=== PATIENT | male | born 1950 | race Caucasian/White ===

== ENCOUNTER 2018-03-20 10:47 | Inpatient (IN) | payer OTHER ==
[2018-03-20 11:33] LABS: ADD MAN DIFF? NO
[2018-03-20 11:34] LABS: BASOPHILS % 0.2 % (0.0-2.0); HEMATOCRIT 45.6 % (42.0-52.0); HEMOGLOBIN 15.5 g/dl (14.0-18.0); LYMPHOCYTES # 1.2 10^3/ul (0.8-2.9); LYMPHOCYTES % 14.4 % (15.0-51.0); MEAN CORPUSCULAR HEMOGLOBIN 33.6 pg (29.0-33.0); MEAN CORPUSCULAR VOLUME 98.9 fl (82.0-101.0); MEAN PLATELET VOLUME 8.6 fl (7.4-10.4); MONOCYTE # 0.7 10^3/ul (0.3-0.9); MONOCYTES % 8.7 % (0.0-11.0); NEUTROPHIL # 6.4 10^3/ul (1.6-7.5); NEUTROPHILS % 76.3 % (39.0-77.0); NUCLEATED RED BLOOD CELLS # 0.1 10^3/ul (0.0-0.0); PLATELET COUNT 220 10^3/UL (140-415); RED BLOOD COUNT 4.61 10^6/ul (4.70-6.10); RED CELL DISTRIBUTION WIDTH 18.2 % (11.5-14.5)
[2018-03-20 11:34] LABS: WHITE BLOOD COUNT 8.4 10^3/ul (4.8-10.8)
[2018-03-20] MEDS: SODIUM CHLORIDE 0.9% 1L BAG IV* (11:36)
[2018-03-20] MEDS: FUROSEMIDE 20 MG INJ IV (11:43)
[2018-03-20] MEDS: CEFTRIAXONE 1 GM/50 ML (PMX) 50 ML IVPB (11:46)
[2018-03-20] MEDS: ALBUTEROL 0.5% (NEB) 2.5 MG/0.5 ML AMP INH (11:54)
[2018-03-20] MEDS: AZITHROMYCIN 500MG/NS (PMX) 250 ML IV ×2 (12:04→12:43)
[2018-03-20 13:14] LABS: Allen Test ACCEPTAB; Arterial Base Excess 5.7 mmol/L (-3.0-3); Arterial Blood Gas Oxygen Sat 99.4 mmHG (95.0-98.0); Arterial Fraction of Oxyhgb 96.9 % (93.0-99.0); Arterial HCO3 40.1 mmol/L (22.0-26.0); Arterial MetHb 0.5 % (0.0-1.5); Arterial pCO2 123.7 mmhg (35-45); Blood Gas IEPAP 20/5; Blood Gas PS 15; MODE MASK - BIPAP; Site Right Radial
[2018-03-20] MEDS ORDERED: SOD CHLORIDE 0.9% 1,000 ML IV (13:41)
[2018-03-20 13:43] LABS: ALANINE AMINOTRANSFERASE 14 IU/L (13-69); ALBUMIN 3.7 g/dl (3.3-4.9); ALBUMIN/GLOBULIN RATIO 0.92; ALKALINE PHOSPHATASE 70 IU/L (42-121); ANION GAP 16 (5-13); ASPARTATE AMINO TRANSFERASE 24 IU/L (15-46); BILIRUBIN,INDIRECT 0.3 mg/dl (0-1.1); BILIRUBIN,TOTAL 0.3 mg/dl (0.2-1.3); BLOOD UREA NITROGEN 42 mg/dl (7-20); CARBON DIOXIDE 35 mmol/L (21-31); CHLORIDE 90 mmol/L (97-110); Estimated GFR > 60 mL/min (>60); GLUCOSE 158 mg/dl (70-220); POTASSIUM 4.4 mmol/L (3.5-5.1); SODIUM 141 mmol/L (135-144); TOTAL PROTEIN 7.7 g/dl (6.1-8.1)
[2018-03-20] MEDS ORDERED: PROPOFOL 100 ML (13:48)
[2018-03-20] MEDS ORDERED: LORAZEPAM 2 MG INJ (13:48)
[2018-03-20 13:55] LABS: B-TYPE NATRIURETIC PEPTIDE 2480 PG/ML (0-125); TROPONIN-I 0.014 ng/ml (0.000-0.120)
[2018-03-20] MEDS ORDERED: ONDANSETRON 4 MG INJ IV ×2 (14:00→15:00)
[2018-03-20] MEDS ORDERED: ACETAMINOPHEN 325 MG TAB PO (14:00)
[2018-03-20] MEDS: MIDAZOLAM (DRIP) 50 mg/50 mL 50 ML IV ×2 (14:06→19:40)
[2018-03-20] MEDS: FENTAnyl (DRIP) 1000 mcg/100mL 100 ML IV (14:12)
[2018-03-20] MEDS: LORAZEPAM 2 MG INJ IV ×2 (14:31)
[2018-03-20] MEDS: SOD CHLORIDE 0.9% 1,000 ML IV (14:46)
[2018-03-20] MEDS ORDERED: IPRATROPIUM (HFA) 12.9 GM INHALER INH (15:00)
[2018-03-20] MEDS ORDERED: LORAZEPAM 2 MG INJ IV (15:00)
[2018-03-20] MEDS ORDERED: ACETAMINOPHEN 650MG/20.3ML CUP PO (15:00)
[2018-03-20 15:10] LABS: ETHANOL < 10.0 mg/dl (0-0)
[2018-03-20] MEDS ORDERED: VANCOMYCIN IV PER PHARMACY XX (15:30)
[2018-03-20 15:31] LABS: HEMOGLOBIN A1C 5.2 % (0-5.9)
[2018-03-20 15:44] LABS: AADO2 Arterial 243.8 mmHg (7.0-24.0); Allen Test ACCEPTAB; Arterial Base Excess 10.3 mmol/L (-3.0-3); Arterial Blood Gas Oxygen Sat 92.7 mmHG (95.0-98.0); Arterial COHb 1.5 % (0.0-3.0); Arterial Fraction of Oxyhgb 91.1 % (93.0-99.0); Arterial HCO3 34.8 mmol/L (22.0-26.0); Arterial MetHb 0.2 % (0.0-1.5); Arterial pCO2 45.3 mmhg (35-45); MODE VENT - AC; Site Right Radial
[2018-03-20 16:34] LABS: ADD UMIC YES; UR ASCORBIC ACID NEGATIVE (NEGATIVE); UR BACTERIA FEW /HPF (NONE SEEN); UR BILIRUBIN (Dip) NEGATIVE (NEGATIVE); UR BLOOD (Dip) 1+ mg/dL (NEGATIVE); UR CLARITY SLIGHTLY CLOUDY (CLEAR); UR COLOR YELLOW (YELLOW); UR GLUCOSE (Dip) NEGATIVE (NEGATIVE); UR HYALINE CAST FEW /HPF (NONE SEEN); UR KETONES (Dip) NEGATIVE (NEGATIVE); UR LEUKOCYTE ESTERASE (Dip) 1+ Leu/ul (NEGATIVE); UR NITRITE (Dip) NEGATIVE (NEGATIVE); UR RBC 0 /HPF (0-5); UR SPECIFIC GRAVITY (Dip) 1.009 (1.003-1.030); UR TOTAL PROTEIN (Dip) NEGATIVE (NEGATIVE); UR UROBILINOGEN (Dip) NEGATIVE (NEGATIVE); UR WBC 8 /HPF (0-5)
[2018-03-20 16:52] LABS: LACTIC ACID 3.5 mmol/L (0.5-2.0)
[2018-03-20] MEDS: METHYLPREDNISOLONE 125 MG INJ IV ×2 (17:50→23:00)
[2018-03-20] MEDS: DEXTROSE 5%-0.45% NACL 1,000 ML IV (17:50)
[2018-03-20] MEDS ORDERED: FUROSEMIDE 40 MG INJ IV (18:00)
[2018-03-20] MEDS: VANCOMYCIN HCL 1.5 GM in SOD CHLORIDE 0.9% 250 ML IVPB (20:41)
[2018-03-20] MEDS: CEFEPIME 1GM/50 ML (PMX) 50 ML IVPB (20:42)
[2018-03-20 21:00] LABS: MAGNESIUM 2.1 mg/dl (1.7-2.5)
[2018-03-20] MEDS: CHLORDIAZEPOXIDE 25 MG CAP NGT ×2 (21:00→23:00)
[2018-03-20] MEDS: MOXIFLOXACIN 0.5% 3 ML OPH BOTH EYES (21:17)
[2018-03-21] MEDS: IPRATROPIUM (HFA) 12.9 GM INHALER INH ×6 (01:26→21:00)
[2018-03-21] MEDS: PANTOPRAZOLE 40 MG INJ IV (05:06)
[2018-03-21] MEDS: FUROSEMIDE 40 MG INJ IV ×2 (05:06→17:56)
[2018-03-21] MEDS: MIDAZOLAM (DRIP) 50 mg/50 mL 50 ML IV (05:06)
[2018-03-21] MEDS: METHYLPREDNISOLONE 125 MG INJ IV ×4 (05:07→23:46)
[2018-03-21 05:09] LABS: AADO2 Arterial 233.9 mmHg (7.0-24.0); Allen Test ACCEPTAB; Arterial Base Excess 9.6 mmol/L (-3.0-3); Arterial Blood Gas Oxygen Sat 93.4 mmHG (95.0-98.0); Arterial COHb 0.9 % (0.0-3.0); Arterial Fraction of Oxyhgb 92.3 % (93.0-99.0); Arterial HCO3 34.9 mmol/L (22.0-26.0); Arterial MetHb 0.3 % (0.0-1.5); Arterial pCO2 48.9 mmhg (35-45); MODE VENT - AC; Site Right Radial
[2018-03-21 05:18] LABS: ADD MAN DIFF? NO
[2018-03-21 05:29] LABS: ABNORMAL IP MESSAGE 1; HEMATOCRIT 41.9 % (42.0-52.0); HEMOGLOBIN 13.7 g/dl (14.0-18.0); LYMPHOCYTES # 0.2 10^3/ul (0.8-2.9); LYMPHOCYTES % 4.6 % (15.0-51.0); MEAN CORPUSCULAR HEMOGLOBIN 33.8 pg (29.0-33.0); MEAN CORPUSCULAR HGB CONC 32.7 g/dl (32.0-37.0); MEAN CORPUSCULAR VOLUME 103.5 fl (82.0-101.0); MEAN PLATELET VOLUME 9.7 fl (7.4-10.4); MONOCYTE # 0.1 10^3/ul (0.3-0.9); MONOCYTES % 2.4 % (0.0-11.0); NEUTROPHIL # 4.6 10^3/ul (1.6-7.5); NEUTROPHILS % 92.6 % (39.0-77.0); NUCLEATED RED BLOOD CELLS% 0.4 /100WBC (0.0-0.0); PLATELET COUNT 174 10^3/UL (140-415); POSITIVE DIFF @See below; RED BLOOD COUNT 4.05 10^6/ul (4.70-6.10); RED CELL DISTRIBUTION WIDTH 14.7 % (11.5-14.5)
[2018-03-21 05:59] LABS: ALANINE AMINOTRANSFERASE 16 IU/L (13-69); ALBUMIN/GLOBULIN RATIO 0.83; ALKALINE PHOSPHATASE 47 IU/L (42-121); ANION GAP 9 (5-13); ASPARTATE AMINO TRANSFERASE 30 IU/L (15-46); BILIRUBIN,INDIRECT 0.3 mg/dl (0-1.1); BILIRUBIN,TOTAL 0.3 mg/dl (0.2-1.3); BLOOD UREA NITROGEN 33 mg/dl (7-20); CALCIUM 7.4 mg/dl (8.4-10.2); CARBON DIOXIDE 37 mmol/L (21-31); CHLORIDE 93 mmol/L (97-110); CREATININE 0.63 mg/dl (0.61-1.24); Estimated GFR > 60 mL/min (>60); GLUCOSE 189 mg/dl (70-220); POTASSIUM 4.4 mmol/L (3.5-5.1); SODIUM 139 mmol/L (135-144); TOTAL PROTEIN 6.6 g/dl (6.1-8.1)
[2018-03-21] MEDS: NICOTINE (21 MG/24 HR) PATCH TRANSDERM (08:57)
[2018-03-21] MEDS: CEFEPIME 1GM/50 ML (PMX) 50 ML IVPB ×2 (08:58→20:34)
[2018-03-21] MEDS: MOXIFLOXACIN 0.5% 3 ML OPH BOTH EYES ×2 (08:58→20:34)
[2018-03-21] MEDS: ENOXAPARIN 40 MG/0.4 ML SYG SC (09:00)
[2018-03-21] MEDS: CHLORDIAZEPOXIDE 25 MG CAP NGT (09:00)
[2018-03-21] MEDS: DEXTROSE 5%-0.45% NACL 1,000 ML IV (09:58)
[2018-03-21] MEDS: LORAZEPAM 2 MG INJ IV ×3 (12:16→22:27)
[2018-03-21] MEDS: VANCOMYCIN 1 GM 250 ML IVPB ×2 (12:19→22:22)
[2018-03-21] MEDS ORDERED: VANCOMYCIN HCL 1.25 GM in SOD CHLORIDE 0.9% 250 ML IVPB (16:00)
[2018-03-21] MEDS: SUCCINYLCHOLINE CHLORIDE 100 MG/5 ML SYG IV (17:00)
[2018-03-22] MEDS: FENTAnyl (DRIP) 1000 mcg/100mL 100 ML IV (00:31)
[2018-03-22] MEDS: IPRATROPIUM (HFA) 12.9 GM INHALER INH ×6 (01:41→21:00)
[2018-03-22 04:53] LABS: ADD MAN DIFF? NO
[2018-03-22 04:55] LABS: ABNORMAL IP MESSAGE 1; HEMATOCRIT 39.3 % (42.0-52.0); HEMOGLOBIN 12.6 g/dl (14.0-18.0); LYMPHOCYTES # 0.2 10^3/ul (0.8-2.9); LYMPHOCYTES % 3.9 % (15.0-51.0); MEAN CORPUSCULAR HEMOGLOBIN 33.3 pg (29.0-33.0); MEAN CORPUSCULAR HGB CONC 32.1 g/dl (32.0-37.0); MEAN PLATELET VOLUME 9.6 fl (7.4-10.4); MONOCYTE # 0.2 10^3/ul (0.3-0.9); MONOCYTES % 3.5 % (0.0-11.0); NEUTROPHIL # 5.2 10^3/ul (1.6-7.5); NEUTROPHILS % 91.9 % (39.0-77.0); PLATELET COUNT 167 10^3/UL (140-415); POSITIVE DIFF @See below; RED BLOOD COUNT 3.78 10^6/ul (4.70-6.10); RED CELL DISTRIBUTION WIDTH 14.6 % (11.5-14.5)
[2018-03-22 04:55] LABS: WHITE BLOOD COUNT 5.7 10^3/ul (4.8-10.8)
[2018-03-22 05:27] LABS: MAGNESIUM 2.2 mg/dl (1.7-2.5)
[2018-03-22 05:29] LABS: ALANINE AMINOTRANSFERASE 17 IU/L (13-69); ALBUMIN 2.9 g/dl (3.3-4.9); ALBUMIN/GLOBULIN RATIO 0.87; ALKALINE PHOSPHATASE 50 IU/L (42-121); ANION GAP 6 (5-13); ASPARTATE AMINO TRANSFERASE 16 IU/L (15-46); BILIRUBIN,INDIRECT 0.1 mg/dl (0-1.1); BILIRUBIN,TOTAL 0.1 mg/dl (0.2-1.3); BLOOD UREA NITROGEN 37 mg/dl (7-20); CALCIUM 7.5 mg/dl (8.4-10.2); CARBON DIOXIDE 35 mmol/L (21-31); CHLORIDE 98 mmol/L (97-110); CREATININE 0.74 mg/dl (0.61-1.24); Estimated GFR > 60 mL/min (>60); GLUCOSE 165 mg/dl (70-220); POTASSIUM 3.7 mmol/L (3.5-5.1); SODIUM 139 mmol/L (135-144); TOTAL PROTEIN 6.2 g/dl (6.1-8.1)
[2018-03-22] MEDS: DEXTROSE 5%-0.45% NACL 1,000 ML IV (05:33)
[2018-03-22] MEDS: METHYLPREDNISOLONE 125 MG INJ IV (05:34)
[2018-03-22] MEDS: FUROSEMIDE 40 MG INJ IV ×2 (05:34→18:00)
[2018-03-22] MEDS: PANTOPRAZOLE 40 MG INJ IV (05:34)
[2018-03-22] MEDS: CEFEPIME 1GM/50 ML (PMX) 50 ML IVPB ×2 (08:34→20:47)
[2018-03-22] MEDS: NICOTINE (21 MG/24 HR) PATCH TRANSDERM (08:36)
[2018-03-22] MEDS: ENOXAPARIN 40 MG/0.4 ML SYG SC (08:37)
[2018-03-22] MEDS: MOXIFLOXACIN 0.5% 3 ML OPH BOTH EYES ×2 (09:06→21:00)
[2018-03-22 10:59] LABS: VANCOMYCIN,TROUGH 20.1 ug/ml (10.0-20.0)
[2018-03-22] MEDS: FOLIC ACID 1 MG TAB NGT (11:49)
[2018-03-22] MEDS: THIAMINE 100 MG TAB NGT (11:49)
[2018-03-22] MEDS: MULTIVITAMINS 30 ML CUP NGT (11:49)
[2018-03-22] MEDS: METHYLPREDNISOLONE 40 MG INJ IV ×2 (12:11→17:13)
[2018-03-22 13:07] LABS: AADO2 Arterial 117.3 mmHg (7.0-24.0); Allen Test ACCEPTAB; Arterial Blood Gas Oxygen Sat 94.5 mmHG (95.0-98.0); Arterial COHb 0.7 % (0.0-3.0); Arterial Fraction of Oxyhgb 93.6 % (93.0-99.0); Arterial HCO3 39.1 mmol/L (22.0-26.0); Arterial MetHb 0.2 % (0.0-1.5); Arterial pCO2 73.9 mmhg (35-45); Blood Gas PS 10; MODE VENT - CPAP; Site Right Radial
[2018-03-22] MEDS: SOD CHLORIDE 0.9% 500 ML IV ×2 (17:09→18:47)
[2018-03-22 19:51] LABS: CREATINE KINASE 23 IU/L (23-200)
[2018-03-22 20:04] LABS: CK-MB < 0.22 ng/ml (0.0-2.4); TROPONIN-I < 0.012 ng/ml (0.000-0.120)
[2018-03-22 21:25] LABS: AADO2 Arterial 112.5 mmHg (7.0-24.0); Allen Test ACCEPTAB; Arterial Base Excess 6.7 mmol/L (-3.0-3); Arterial Blood Gas Oxygen Sat 99.9 mmHG (95.0-98.0); Arterial COHb 0.6 % (0.0-3.0); Arterial Fraction of Oxyhgb 98.9 % (93.0-99.0); Arterial HCO3 38.5 mmol/L (22.0-26.0); Arterial MetHb 0.4 % (0.0-1.5); Arterial pCO2 96.1 mmhg (35-45); MODE MASK - NRB; Site Right Radial
[2018-03-22] MEDS: VANCOMYCIN HCL 1.25 GM in SOD CHLORIDE 0.9% 250 ML IVPB (22:08)
[2018-03-23] MEDS: METHYLPREDNISOLONE 40 MG INJ IV ×5 (00:08→23:32)
[2018-03-23 04:54] LABS: ADD MAN DIFF? NO
[2018-03-23 04:56] LABS: AADO2 Arterial 103.9 mmHg (7.0-24.0); Allen Test ACCEPTAB; Arterial Base Excess 9.4 mmol/L (-3.0-3); Arterial Blood Gas Oxygen Sat 98.8 mmHG (95.0-98.0); Arterial COHb 0.3 % (0.0-3.0); Arterial Fraction of Oxyhgb 98.2 % (93.0-99.0); Arterial HCO3 38.9 mmol/L (22.0-26.0); Arterial MetHb 0.3 % (0.0-1.5); Arterial pCO2 77.8 mmhg (35-45); Blood Gas IEPAP 20/5; Blood Gas PS 15; MODE MASK - BIPAP; Site Right Radial
[2018-03-23 04:58] LABS: ABNORMAL IP MESSAGE 1; HEMATOCRIT 42.5 % (42.0-52.0); HEMOGLOBIN 13.5 g/dl (14.0-18.0); LYMPHOCYTES # 0.2 10^3/ul (0.8-2.9); LYMPHOCYTES % 5.9 % (15.0-51.0); MEAN CORPUSCULAR HEMOGLOBIN 33.8 pg (29.0-33.0); MEAN CORPUSCULAR HGB CONC 31.8 g/dl (32.0-37.0); MEAN CORPUSCULAR VOLUME 106.5 fl (82.0-101.0); MEAN PLATELET VOLUME 9.5 fl (7.4-10.4); MONOCYTE # 0.1 10^3/ul (0.3-0.9); MONOCYTES % 2.5 % (0.0-11.0); NEUTROPHIL # 3.7 10^3/ul (1.6-7.5); PLATELET COUNT 172 10^3/UL (140-415); POSITIVE DIFF @See below; RED BLOOD COUNT 3.99 10^6/ul (4.70-6.10); RED CELL DISTRIBUTION WIDTH 14.6 % (11.5-14.5)
[2018-03-23 04:58] LABS: WHITE BLOOD COUNT 4.1 10^3/ul (4.8-10.8)
[2018-03-23 05:15] LABS: NEUTROPHILS % 91.1 % (39.0-77.0)
[2018-03-23] MEDS: PANTOPRAZOLE 40 MG INJ IV (05:34)
[2018-03-23 05:36] LABS: ANION GAP 6 (5-13); BLOOD UREA NITROGEN 34 mg/dl (7-20); CALCIUM 7.8 mg/dl (8.4-10.2); CARBON DIOXIDE 37 mmol/L (21-31); CHLORIDE 100 mmol/L (97-110); CREATININE 0.67 mg/dl (0.61-1.24); Estimated GFR > 60 mL/min (>60); GLUCOSE 133 mg/dl (70-220); MAGNESIUM 2.6 mg/dl (1.7-2.5); SODIUM 143 mmol/L (135-144)
[2018-03-23 06:48] LABS: POTASSIUM 3.8 mmol/L (3.5-5.1)
[2018-03-23 08:10] LABS: AADO2 Arterial 137.4 mmHg (7.0-24.0); Allen Test ACCEPTAB; Arterial Base Excess 8.2 mmol/L (-3.0-3); Arterial Blood Gas Oxygen Sat 93.1 mmHG (95.0-98.0); Arterial COHb 1.3 % (0.0-3.0); Arterial Fraction of Oxyhgb 91.7 % (93.0-99.0); Arterial HCO3 36.1 mmol/L (22.0-26.0); Arterial MetHb 0.2 % (0.0-1.5); Arterial pCO2 65.3 mmhg (35-45); Site Right Radial
[2018-03-23] MEDS: MULTIVITAMINS 30 ML CUP NGT (09:00)
[2018-03-23] MEDS: THIAMINE 100 MG TAB NGT (09:00)
[2018-03-23] MEDS: FOLIC ACID 1 MG TAB NGT (09:00)
[2018-03-23] MEDS: CEFEPIME 1GM/50 ML (PMX) 50 ML IVPB (09:33)
[2018-03-23] MEDS: ENOXAPARIN 40 MG/0.4 ML SYG SC (09:33)
[2018-03-23] MEDS: MOXIFLOXACIN 0.5% 3 ML OPH BOTH EYES ×2 (09:33→20:17)
[2018-03-23] MEDS: LORAZEPAM 2 MG INJ IV (09:34)
[2018-03-23] MEDS: NICOTINE (21 MG/24 HR) PATCH TRANSDERM (09:34)
[2018-03-23 11:06] LABS: MODE MASK - BIPAP
[2018-03-23 12:03] LABS: AADO2 Arterial 127.2 mmHg (7.0-24.0); Allen Test ACCEPTAB; Arterial Base Excess 9.4 mmol/L (-3.0-3); Arterial Blood Gas Oxygen Sat 94.7 mmHG (95.0-98.0); Arterial COHb 0.8 % (0.0-3.0); Arterial Fraction of Oxyhgb 93.7 % (93.0-99.0); Arterial HCO3 37.7 mmol/L (22.0-26.0); Arterial MetHb 0.3 % (0.0-1.5); Arterial pCO2 67.4 mmhg (35-45); Blood Gas IEPAP 20/5; Blood Gas PS 15; MODE MASK - BIPAP; Site Right Radial
[2018-03-23] MEDS: FLUCONAZOLE 100 MG/50 ML (PMX) 50 ML IVPB (18:13)
[2018-03-24] MEDS: PANTOPRAZOLE 40 MG INJ IV (05:11)
[2018-03-24] MEDS: METHYLPREDNISOLONE 40 MG INJ IV ×3 (05:11→21:12)
[2018-03-24 05:19] LABS: ADD MAN DIFF? NO
[2018-03-24 05:25] LABS: WHITE BLOOD COUNT 3.8 10^3/ul (4.8-10.8)
[2018-03-24 05:25] LABS: ABNORMAL IP MESSAGE 1; HEMATOCRIT 44.7 % (42.0-52.0); HEMOGLOBIN 13.8 g/dl (14.0-18.0); LYMPHOCYTES # 0.2 10^3/ul (0.8-2.9); LYMPHOCYTES % 5.3 % (15.0-51.0); MEAN CORPUSCULAR HEMOGLOBIN 33.7 pg (29.0-33.0); MEAN CORPUSCULAR HGB CONC 30.9 g/dl (32.0-37.0); MEAN PLATELET VOLUME 9.3 fl (7.4-10.4); MONOCYTE # 0.2 10^3/ul (0.3-0.9); MONOCYTES % 3.9 % (0.0-11.0); NEUTROPHIL # 3.4 10^3/ul (1.6-7.5); NEUTROPHILS % 90.5 % (39.0-77.0); PLATELET COUNT 171 10^3/UL (140-415); POSITIVE DIFF @See below; RED CELL DISTRIBUTION WIDTH 14.1 % (11.5-14.5)
[2018-03-24 05:50] LABS: ANION GAP 7 (5-13); BLOOD UREA NITROGEN 28 mg/dl (7-20); CALCIUM 8.1 mg/dl (8.4-10.2); CARBON DIOXIDE 37 mmol/L (21-31); CHLORIDE 101 mmol/L (97-110); CREATININE 0.59 mg/dl (0.61-1.24); Estimated GFR > 60 mL/min (>60); GLUCOSE 102 mg/dl (70-220); MAGNESIUM 2.9 mg/dl (1.7-2.5); PHOSPHORUS 3.8 mg/dl (2.5-4.9); POTASSIUM 4.2 mmol/L (3.5-5.1); SODIUM 145 mmol/L (135-144)
[2018-03-24 07:24] LABS: AADO2 Arterial 62.2 mmHg (7.0-24.0); Allen Test ACCEPTAB; Arterial Base Excess 8.4 mmol/L (-3.0-3); Arterial Blood Gas Oxygen Sat 98.2 mmHG (95.0-98.0); Arterial COHb 0.5 % (0.0-3.0); Arterial Fraction of Oxyhgb 97.4 % (93.0-99.0); Arterial HCO3 37.8 mmol/L (22.0-26.0); Arterial MetHb 0.3 % (0.0-1.5); Arterial pCO2 74.9 mmhg (35-45); MODE NASAL CANNULA; Site Right Radial
[2018-03-24] MEDS: FOLIC ACID 1 MG TAB NGT (09:27)
[2018-03-24] MEDS: THIAMINE 100 MG TAB NGT (09:28)
[2018-03-24] MEDS: MULTIVITAMINS 30 ML CUP NGT (09:28)
[2018-03-24] MEDS: MOXIFLOXACIN 0.5% 3 ML OPH BOTH EYES ×2 (09:32→21:00)
[2018-03-24] MEDS: NICOTINE (21 MG/24 HR) PATCH TRANSDERM (09:33)
[2018-03-24] MEDS: ENOXAPARIN 40 MG/0.4 ML SYG SC (09:33)
[2018-03-24] MEDS: CEFEPIME 1GM/50 ML (PMX) 50 ML IVPB ×2 (11:59→21:07)
[2018-03-24] MEDS: ALBUTEROL/IPRATROPIUM (NEB) 3 ML AMP HHN ×2 (14:54→21:33)
[2018-03-24] MEDS: FLUCONAZOLE 100 MG/50 ML (PMX) 50 ML IVPB (16:39)
[2018-03-24] MEDS: FUROSEMIDE 20 MG INJ IV (16:39)
[2018-03-25] MEDS: PANTOPRAZOLE 40 MG INJ IV (05:15)
[2018-03-25 06:49] LABS: ADD MAN DIFF? NO
[2018-03-25 06:56] LABS: WHITE BLOOD COUNT 4.4 10^3/ul (4.8-10.8)
[2018-03-25 06:56] LABS: ABNORMAL IP MESSAGE 1; BASOPHILS % 0.2 % (0.0-2.0); HEMATOCRIT 43.3 % (42.0-52.0); HEMOGLOBIN 13.7 g/dl (14.0-18.0); LYMPHOCYTES # 0.3 10^3/ul (0.8-2.9); LYMPHOCYTES % 5.9 % (15.0-51.0); MEAN CORPUSCULAR HEMOGLOBIN 33.1 pg (29.0-33.0); MEAN CORPUSCULAR HGB CONC 31.6 g/dl (32.0-37.0); MEAN CORPUSCULAR VOLUME 104.6 fl (82.0-101.0); MEAN PLATELET VOLUME 9.4 fl (7.4-10.4); MONOCYTE # 0.2 10^3/ul (0.3-0.9); MONOCYTES % 5.3 % (0.0-11.0); NEUTROPHIL # 3.9 10^3/ul (1.6-7.5); NEUTROPHILS % 88.4 % (39.0-77.0); PLATELET COUNT 178 10^3/UL (140-415); POSITIVE DIFF @See below; RED BLOOD COUNT 4.14 10^6/ul (4.70-6.10); RED CELL DISTRIBUTION WIDTH 13.6 % (11.5-14.5)
[2018-03-25 07:17] LABS: ANION GAP -1 (5-13); BLOOD UREA NITROGEN 29 mg/dl (7-20); CALCIUM 8.4 mg/dl (8.4-10.2); CHLORIDE 101 mmol/L (97-110); CREATININE 0.71 mg/dl (0.61-1.24); Estimated GFR > 60 mL/min (>60); GLUCOSE 144 mg/dl (70-220); POTASSIUM 4.4 mmol/L (3.5-5.1); SODIUM 140 mmol/L (135-144)
[2018-03-25] MEDS: ALBUTEROL/IPRATROPIUM (NEB) 3 ML AMP HHN ×3 (07:18→19:35)
[2018-03-25 07:25] LABS: MAGNESIUM 2.7 mg/dl (1.7-2.5)
[2018-03-25 07:29] LABS: CARBON DIOXIDE 40 mmol/L (21-31)
[2018-03-25] MEDS: MOXIFLOXACIN 0.5% 3 ML OPH BOTH EYES ×3 (09:00→20:48)
[2018-03-25] MEDS: NICOTINE (21 MG/24 HR) PATCH TRANSDERM ×2 (09:00→11:23)
[2018-03-25] MEDS: METHYLPREDNISOLONE 40 MG INJ IV ×2 (09:26→20:48)
[2018-03-25] MEDS: THIAMINE 100 MG TAB NGT (09:26)
[2018-03-25] MEDS: CEFEPIME 1GM/50 ML (PMX) 50 ML IVPB ×2 (09:27→20:47)
[2018-03-25] MEDS: FUROSEMIDE 20 MG INJ IV (09:27)
[2018-03-25] MEDS: MULTIVITAMINS 30 ML CUP NGT (09:27)
[2018-03-25] MEDS: FOLIC ACID 1 MG TAB NGT (09:27)
[2018-03-25] MEDS: ENOXAPARIN 40 MG/0.4 ML SYG SC (09:31)
[2018-03-25] MEDS: FLUCONAZOLE 100 MG/50 ML (PMX) 50 ML IVPB (16:13)
[2018-03-26] MEDS: FUROSEMIDE 20 MG TAB PO (05:34)
[2018-03-26] MEDS: PANTOPRAZOLE 40 MG INJ IV (05:34)
[2018-03-26] MEDS: ALBUTEROL/IPRATROPIUM (NEB) 3 ML AMP HHN ×3 (07:51→19:55)
[2018-03-26] MEDS: CEFEPIME 1GM/50 ML (PMX) 50 ML IVPB (09:24)
[2018-03-26] MEDS: METHYLPREDNISOLONE 40 MG INJ IV (09:24)
[2018-03-26] MEDS: THIAMINE 100 MG TAB NGT (09:24)
[2018-03-26] MEDS: MULTIVITAMINS 30 ML CUP NGT (09:24)
[2018-03-26] MEDS: NICOTINE (21 MG/24 HR) PATCH TRANSDERM (09:24)
[2018-03-26] MEDS: MOXIFLOXACIN 0.5% 3 ML OPH BOTH EYES ×2 (09:24→20:21)
[2018-03-26] MEDS: FOLIC ACID 1 MG TAB NGT (09:24)
[2018-03-26] MEDS: ENOXAPARIN 40 MG/0.4 ML SYG SC (09:50)
[2018-03-26] MEDS: BUDESONIDE (NEB) 0.5MG/2ML AMP HHN (19:56)
[2018-03-27] MEDS: FUROSEMIDE 20 MG TAB PO (05:26)
[2018-03-27] MEDS: PANTOPRAZOLE (EC) 40 MG TAB PO (05:26)
[2018-03-27 06:19] LABS: ADD MAN DIFF? NO
[2018-03-27 06:36] LABS: BASOPHILS % 0.2 % (0.0-2.0); EOSINOPHILS % 0.8 % (0.0-7.0); HEMATOCRIT 45.4 % (42.0-52.0); HEMOGLOBIN 14.3 g/dl (14.0-18.0); LYMPHOCYTES # 0.9 10^3/ul (0.8-2.9); LYMPHOCYTES % 16.9 % (15.0-51.0); MEAN CORPUSCULAR HEMOGLOBIN 33.3 pg (29.0-33.0); MEAN CORPUSCULAR HGB CONC 31.5 g/dl (32.0-37.0); MEAN CORPUSCULAR VOLUME 105.6 fl (82.0-101.0); MEAN PLATELET VOLUME 9.2 fl (7.4-10.4); MONOCYTE # 0.3 10^3/ul (0.3-0.9); MONOCYTES % 6.6 % (0.0-11.0); NEUTROPHIL # 3.8 10^3/ul (1.6-7.5); NEUTROPHILS % 75.1 % (39.0-77.0); PLATELET COUNT 203 10^3/UL (140-415); RED CELL DISTRIBUTION WIDTH 13.9 % (11.5-14.5)
[2018-03-27 07:07] LABS: BLOOD UREA NITROGEN 22 mg/dl (7-20); CALCIUM 8.8 mg/dl (8.4-10.2); CHLORIDE 97 mmol/L (97-110); CREATININE 0.55 mg/dl (0.61-1.24); Estimated GFR > 60 mL/min (>60); GLUCOSE 83 mg/dl (70-220); MAGNESIUM 2.3 mg/dl (1.7-2.5); PHOSPHORUS 4.5 mg/dl (2.5-4.9); POTASSIUM 3.7 mmol/L (3.5-5.1); SODIUM 140 mmol/L (135-144)
[2018-03-27 07:48] LABS: ANION GAP 1 (5-13)
[2018-03-27 07:50] LABS: CARBON DIOXIDE 42 mmol/L (21-31)
[2018-03-27] MEDS: ALBUTEROL/IPRATROPIUM (NEB) 3 ML AMP HHN ×3 (08:00→20:15)
[2018-03-27] MEDS: MOXIFLOXACIN 0.5% 3 ML OPH BOTH EYES (09:00)
[2018-03-27] MEDS: MULTIVITAMINS 30 ML CUP NGT (09:45)
[2018-03-27] MEDS: predniSONE 20 MG TAB PO (09:45)
[2018-03-27] MEDS: NICOTINE (21 MG/24 HR) PATCH TRANSDERM (09:45)
[2018-03-27] MEDS: FOLIC ACID 1 MG TAB NGT (09:45)
[2018-03-27] MEDS: THIAMINE 100 MG TAB NGT (09:45)
[2018-03-27] MEDS: ENOXAPARIN 40 MG/0.4 ML SYG SC (09:58)
[2018-03-27] MEDS: INFLUENZA VIRUS VACCINE 0.5 ML (DISPENSING) IM* (10:32)
[2018-03-27] MEDS: BUDESONIDE (NEB) 0.5MG/2ML AMP HHN ×2 (10:47→20:15)
[2018-03-28] MEDS: PANTOPRAZOLE (EC) 40 MG TAB PO (05:28)
[2018-03-28 06:05] LABS: ADD MAN DIFF? NO
[2018-03-28 06:14] LABS: WHITE BLOOD COUNT 5.6 10^3/ul (4.8-10.8)
[2018-03-28 06:14] LABS: BASOPHILS % 0.2 % (0.0-2.0); EOSINOPHILS % 0.7 % (0.0-7.0); HEMATOCRIT 45.3 % (42.0-52.0); LYMPHOCYTES # 0.8 10^3/ul (0.8-2.9); LYMPHOCYTES % 14.8 % (15.0-51.0); MEAN CORPUSCULAR HEMOGLOBIN 32.6 pg (29.0-33.0); MEAN CORPUSCULAR HGB CONC 30.9 g/dl (32.0-37.0); MEAN CORPUSCULAR VOLUME 105.6 fl (82.0-101.0); MONOCYTE # 0.4 10^3/ul (0.3-0.9); NEUTROPHIL # 4.3 10^3/ul (1.6-7.5); NEUTROPHILS % 77.1 % (39.0-77.0); PLATELET COUNT 199 10^3/UL (140-415); RED BLOOD COUNT 4.29 10^6/ul (4.70-6.10); RED CELL DISTRIBUTION WIDTH 13.7 % (11.5-14.5)
[2018-03-28 06:39] LABS: BLOOD UREA NITROGEN 26 mg/dl (7-20); CHLORIDE 93 mmol/L (97-110); CREATININE 0.54 mg/dl (0.61-1.24); Estimated GFR > 60 mL/min (>60); GLUCOSE 88 mg/dl (70-220); MAGNESIUM 2.2 mg/dl (1.7-2.5); PHOSPHORUS 4.4 mg/dl (2.5-4.9); SODIUM 141 mmol/L (135-144)
[2018-03-28 07:02] LABS: ANION GAP 6 (5-13); CARBON DIOXIDE 42 mmol/L (21-31)
[2018-03-28] MEDS: MULTIVITAMINS 30 ML CUP NGT (08:26)
[2018-03-28] MEDS: THIAMINE 100 MG TAB NGT (08:26)
[2018-03-28] MEDS: FOLIC ACID 1 MG TAB NGT (08:26)
[2018-03-28] MEDS: predniSONE 20 MG TAB PO (08:26)
[2018-03-28] MEDS: NICOTINE (21 MG/24 HR) PATCH TRANSDERM (08:26)
[2018-03-28] MEDS: BUDESONIDE (NEB) 0.5MG/2ML AMP HHN ×2 (09:00→19:53)
[2018-03-28] MEDS: ENOXAPARIN 40 MG/0.4 ML SYG SC (09:09)
[2018-03-28] MEDS: ALBUTEROL/IPRATROPIUM (NEB) 3 ML AMP HHN ×3 (09:12→19:53)
[2018-03-28] MEDS: MOXIFLOXACIN 0.5% 3 ML OPH BOTH EYES (20:17)
[2018-03-29] MEDS: PANTOPRAZOLE (EC) 40 MG TAB PO (05:14)
[2018-03-29] MEDS: BUDESONIDE (NEB) 0.5MG/2ML AMP HHN (08:07)
[2018-03-29] MEDS: ALBUTEROL/IPRATROPIUM (NEB) 3 ML AMP HHN ×2 (08:07→13:47)
[2018-03-29] MEDS: MULTIVITAMINS 30 ML CUP NGT (08:30)
[2018-03-29] MEDS: FOLIC ACID 1 MG TAB NGT (08:30)
[2018-03-29] MEDS: THIAMINE 100 MG TAB NGT (08:30)
[2018-03-29] MEDS: predniSONE 20 MG TAB PO (08:30)
[2018-03-29] MEDS: NICOTINE (21 MG/24 HR) PATCH TRANSDERM (08:31)
[2018-03-29] MEDS: MOXIFLOXACIN 0.5% 3 ML OPH BOTH EYES (08:31)
[2018-03-29] MEDS: ENOXAPARIN 40 MG/0.4 ML SYG SC (08:41)
[2018-03-29 09:32] LABS: ADD MAN DIFF? NO
[2018-03-29 09:36] LABS: WHITE BLOOD COUNT 5.7 10^3/ul (4.8-10.8)
[2018-03-29 09:36] LABS: BASOPHILS % 0.2 % (0.0-2.0); EOSINOPHILS % 0.7 % (0.0-7.0); HEMATOCRIT 47.3 % (42.0-52.0); HEMOGLOBIN 14.4 g/dl (14.0-18.0); LYMPHOCYTES # 1.2 10^3/ul (0.8-2.9); LYMPHOCYTES % 20.1 % (15.0-51.0); MEAN CORPUSCULAR HEMOGLOBIN 32.6 pg (29.0-33.0); MEAN CORPUSCULAR HGB CONC 30.4 g/dl (32.0-37.0); MONOCYTE # 0.4 10^3/ul (0.3-0.9); MONOCYTES % 6.5 % (0.0-11.0); NEUTROPHIL # 4.1 10^3/ul (1.6-7.5); NEUTROPHILS % 72.3 % (39.0-77.0); PLATELET COUNT 218 10^3/UL (140-415); RED BLOOD COUNT 4.42 10^6/ul (4.70-6.10); RED CELL DISTRIBUTION WIDTH 13.6 % (11.5-14.5)
[2018-03-29 10:14] LABS: BLOOD UREA NITROGEN 23 mg/dl (7-20); CALCIUM 9.1 mg/dl (8.4-10.2); CHLORIDE 95 mmol/L (97-110); CREATININE 0.57 mg/dl (0.61-1.24); Estimated GFR > 60 mL/min (>60); GLUCOSE 76 mg/dl (70-220); POTASSIUM 4.5 mmol/L (3.5-5.1); SODIUM 140 mmol/L (135-144)
[2018-03-29 10:23] LABS: ANION GAP -2 (5-13)
[2018-03-29 10:25] LABS: CARBON DIOXIDE 47 mmol/L (21-31)
[2018-03-29] MEDS: SOD CHLORIDE 0.9% 100 ML (12:13)
[2018-03-29] MEDS: IOHEXOL 300MG/ML 150 ML BTL (12:13)
== END 2018-03-29 19:57 | DRG 871 ==
LOC: TEL 03-24 19:31 → E/R 10:47 → ICU 13:42
PROVIDERS: Internal Medicine
PROC: 5A1945Z Respiratory Ventilation, 24-96 Consecutive Hours (ICD-10-PCS; principal; 2018-03-20)
PROC: 0BH17EZ Insertion of Endotracheal Airway into Trachea, Via Natural or Artificial Opening (ICD-10-PCS; 2018-03-20)
DX: A41.9 Sepsis, unspecified organism (principal); J96.02 Acute respiratory failure with hypercapnia; J18.9 Pneumonia, unspecified organism; J44.0 Chronic obstructive pulmonary disease with (acute) lower respiratory infection; J44.1 Chronic obstructive pulmonary disease with (acute) exacerbation; I42.6 Alcoholic cardiomyopathy; G93.49 Other encephalopathy; J81.1 Chronic pulmonary edema; I47.1 Supraventricular tachycardia; F17.200 Nicotine dependence, unspecified, uncomplicated; I50.9 Heart failure, unspecified; F10.20 Alcohol dependence, uncomplicated
CPT/HCPCS: 31500; 36415; 36600; 70450; 71045; 71260; 80048; 80053; 80202; 80307; 81001; 82550; 82553; 82803; 83036; 83605; 83735; 83880; 84100; 84484; 85025; 87040; 87070; 87081; 87086; 92526; 92610; 93005; 93306; 94002; 94003; 94640; 94644; 94660; 94664; 94770; 96365; 96367; 96375; 97110; 97116; 97162; 97530; 99291-25